=== PATIENT | female | born 2005 | race Two or more races ===

== ENCOUNTER → 2025-10-21 | Outpatient (CLI) | payer MEDICAID, SELFPAY ==
--- NOTE | 2025-10-21 07:30 | XR_ITS ---
Exam: MRI knee without contrast, right Date and time of exam: October 21, 2025, 0748 hours INDICATIONS: Injury 18 months ago, patient felt a pop in the knee followed by anterior knee pain loss of function unable to extend the leg stiffness swelling joint locking instability Technique: Multiple axial, coronal, and sagittal sections on the knee have been obtained. T2-Weighted sagittal, fat-suppressed images, TR 3,500, TE 62, T2 weighted coronal fat-saturated images, TR 3,500, TE 62 Proton density sagittal sections, TR 1800, TE 31. T-1 weighted coronal images, TR 524, TE 13.0 Findings: Medial meniscus anterior horn intact. Medial meniscus, body intact. Posterior horn medial meniscus intact. Lateral meniscus anterior horn complex tear Lateral meniscus, body complex tear Posterior horn lateral meniscus meniscocapsular separation Anterior cruciate ligament complete tear Posterior cruciate ligament appears intact. Knee effusion is moderate,. Quadriceps and patellar tendons appear intact. There is no evidence of tendinosis. Inflammatory change or fracture of Hoffa's fat pad is not seen. Medial patellar facet demonstrates no thinning. Lateral patellar facet cartilage demonstrates no thinning. Trochlear cartilage demonstrates no thinning. Marrow signal adequate. Medial collateral ligament appears intact. Illiotibial band and fibular collateral ligament are intact. Biceps femoris tendons appear intact. Medial femoral condylar articular cartilage demonstrates no thinning. Lateral femoral condylar articular cartilage demonstrates no thinning. Tibial plateau cartilage demonstrates no thinning. Impression: Complete tear anterior cruciate ligament Extensive tears lateral menisci including meniscal capsular separation posterior horn lateral meniscus
== END | disposition home or self-care (01) ==
LOC: SMRI 07:04
PROVIDERS: PCP Nurse Practitioner Family; Referring Provider Nurse Practitioner Family; Visit Provider Nurse Practitioner Family
DX: S83.511A Sprain of anterior cruciate ligament of right knee, initial encounter (principal); S83.281A Other tear of lateral meniscus, current injury, right knee, initial encounter; X58.XXXA Exposure to other specified factors, initial encounter
CPT/HCPCS: 73721